=== PATIENT | female | born 1995 | race Caucasian/White ===

== ENCOUNTER 2016-06-16 08:25 | Emergency (ER) | payer BC ==
[2016-06-16 08:32] VITALS: O2SAT 98
--- NOTE | 2016-06-16 08:52 | CPEKG ---
Heart Rate: 64 RR Interval: 938 P-R Interval: 244 QRSD Interval: 82 QT Interval: 416 QTC Interval: 430 P Phoenix: 6 QRS Phoenix: 28 T Wave Phoenix: -15 EKG Severity - ABNORMAL ECG - EKG Impression: SINUS RHYTHM EKG Impression: FIRST DEGREE AV BLOCK EKG Impression: BORDERLINE T ABNORMALITIES, INFERIOR LEADS Electronically Signed By: Angelic Novak 16-Jun-2016 15:13:59
--- NOTE | 2016-06-16 08:54 | EDPHY ---
H & P Stated Complaint: this am had lower abd pain/causing her to faint Time Seen by Provider: 06/16/16 08:41 HPI/ROS: CHIEF COMPLAINT: Abdominal pain, Syncope HISTORY OF PRESENT ILLNESS: The patient is a 21 year old female presenting with syncope and lower abdominal pain. The patient woke up with lower abdominal cramping. She got up to use the bathroom, while trying to have a bowel movement she began to feel nauseous. She had a syncopal episode and came to on the floor. She has a small abrasion on her lip, but no other injuries. The patient is supposed to get her period soon. She feels moderate lower abdominal cramping and bloating. Her LMP was 05/19/16. She denies bloody stool or hematuria. No vomiting. No chest pain, palpitations, shortness of breath. Hx of syncope as a child; sounds like vasovagal. No alcohol use last night. Uses condoms for control. REVIEW OF SYSTEMS: Aside from elements discussed in the HPI, a comprehensive 10-point review of systems was reviewed and is negative. PAST MEDICAL HISTORY: Denies. SOCIAL HISTORY: [employer] student. VITAL SIGNS: Reviewed by me GENERAL: Well-developed, well-nourished, resting comfortably in no respiratory distress. HEENT: Atraumatic. Eyes: No icterus, no injection. Slight anisocoria. Mouth : moist mucous membranes. abrasion to the inner aspect to lower right lip. Neck: supple with no adenopathy. LUNGS: Clear to auscultation bilaterally, no wheezes, rhonchi or rales. CARDIAC: Regular rate and rhythm, no rubs, murmurs or gallops. ABDOMEN: Lower abdominal discomfort on palpation, very mild. No guarding, rebound, distention. BACK: No CVA tenderness. EXTREMITIES: No trauma. No edema. Range of motion is normal throughout. NEURO: Alert and oriented, grossly nonfocal. SKIN: Warm and dry, no rash. PSYCHIATRIC: Normal mentation, no agitation. Portions of this note were transcribed by a medical scientist. I personally performed a history, physical exam, medical decision making, and confirmed accuracy of information the transcribed note. - Personal History LMP (Females 10-55): 22-28 Days Ago Current Tetanus/Diphtheria Vaccine: Yes - Medical/Surgical History Hx Asthma: No Hx Chronic Respiratory Disease: No Hx Diabetes: No Hx Cardiac Disease: No Hx Renal Disease: No Hx Cirrhosis: No Hx Alcoholism: No Hx HIV/AIDS: No Hx Splenectomy or Spleen Trauma: No Other PMH: denies - Social History Smoking Status: Never smoked Constitutional: Initial Vital Signs Temperature (C) 36.9 C 06/16/16 08:29 Heart Rate 65 06/16/16 08:29 Respiratory Rate 16 06/16/16 08:29 Blood Pressure 110/74 06/16/16 08:29 O2 Sat (%) 98 06/16/16 08:29 O2 Delivery Mode Room Air Allergies/Adverse Reactions: No Known Allergies Allergy (Unverified 06/16/16 08:29) Home Medications: Medication Instructions Recorded Diflucan 06/16/16 Hydrocodone/APAP 5/325 [[place] 1 tab PO Q6H PRN #10 tab 06/16/16 5/325 (RX)] Medical Decision Making - Diagnostics EKG Interpretation: The 12 lead EKG was interpreted by myself. See hard copy and/or "tracemaster" electronic copy for interpretation: Sinus rhythm, first degree AV block, Borderline T abnormalities. Imaging: Pelvic ultrasound was obtained. Read by radiologist and discussed with myself. I viewed images on PACS system. Radiology report: Impression: 1. No acute findings. 2. 1.7 cm complex left ovarian cyst. Six-week follow up ultrasound is recommended to document resolution. Read by Dr Austin. Discussed with patient. ED Course/Re-evaluation: 21 year old with lower abdominal cramping pain, nausea, and syncope while on toilet (having bm). No blood in stools. Evaluation demonstrates an EKG without evidence of malignant arrhythmia, not , normal labs, normal UA, neg troponin, and largely unremarkable pelvic ultrasound, except for ovarian cyst. Discussed evaluation with patient. Feel safe for discharge. Suspect syncope was vasovagal in etiology; do not suspect cardiac syncope. Pain better with fluids and zofran and pain meds. Patient feels comfortable with plan to follow up for recheck of cyst. Differential Diagnosis: The differential diagnosis for the patient's abdominal pain was considered including but not limited to ovarian cyst, pelvic inflammatory disease, ovarian torsion, urinary tract infection, related complications, and appendicitis. - Data Points Laboratory Results: Laboratory Results 06/16/16 09:00 06/16/16 09:00 Medications Given: Discontinued Medications Sodium Chloride (Ns) 1,000 mls @ 0 mls/hr IV ONCE ONE PRN Reason: Wide Open Stop: 06/16/16 08:59 Last Admin: 06/16/16 09:47 Dose: 1,000 mls Departure - Departure Disposition: Home, Routine, Self-Care Clinical Impression: Lower abdominal pain Ovarian cyst Qualifiers: Qualifier Code: (N83.202) Unspecified ovarian cyst, left side Syncope Qualifiers: Qualifier Code: (R55) Syncope and collapse Condition: Good Instructions: Ovarian Cyst (ED), Syncope (ED) Additional Instructions: Drink plenty of fluids. Get plenty of rest. For your abdominal discomfort I recommend nonsteroidal antiinflammatories on a regular basis. I recommend Ibuprofen (Motrin, Advil) or Naproxen Sodium (Aleve) for pain and anti-inflammatory effects. You may take either one, but do not take both. Your dose is: Ibuprofen 600 mg every 6-8 hours with food. OR Naproxen Sodium (Aleve) 220 mg every 12 hours. Please follow up with her primary care physician if you're not improving as expected in the next 1-2 days. Be seen sooner if you are worse. Referrals: Andres Alexander DO [Doctor of Osteopathy] - As per Instructions Stand Alone Forms: School Excuse Prescriptions: Hydrocodone/APAP 5/325 [[place] 5/325 (RX)] 1 tab PO Q6H PRN #10 tab PRN Reason: Pain Report Scribed for: Angelic Novak Report Scribed by: Marylou Miranda Date of Report: 06/16/16 Time of Report: 08:54
[2016-06-16] MEDS ORDERED: NS 1,000 ML IV ONE (08:58)
[2016-06-16 09:17] LABS: % IMMATURE GRANULYOCYTES 0.2 % (0.0-1.1); ABSOLUTE IMMATURE GRANULOCYTES 0.02 10^3/uL (0.00-0.10); ADD DIFF? NO; ADD MORPH? NO; ADD SCAN? NO; ATYPICAL LYMPHOCYTE FLAG 0 (0-99); FRAGMENT RBC FLAG 0 (0-99); HEMATOCRIT 42.3 % (38.0-47.0); HEMOGLOBIN 14.7 g/dL (12.6-16.3); LEFT SHIFT FLG 0 (0-99); LIPEMIA HEMOLYSIS FLAG 90 (0-99); MEAN CELL HEMOGLOBIN 31.3 pg (27.9-34.1); MEAN CELL HEMOGLOBIN CONCENTR. 34.8 g/dL (32.4-36.7); MEAN CELL VOLUME 90.2 fL (81.5-99.8); MEAN PLATELET VOLUME 9.4 fL (8.7-11.7); PLATELET CLUMPS FLAG 0 (0-99); PLATELET COUNT 232 10^3/uL (150-400); RED BLOOD CELL COUNT 4.69 10^6/uL (4.18-5.33); RED CELL DISTRIBUTION WIDTH 11.9 % (11.5-15.2)
[2016-06-16 09:27] LABS: ANION GAP 12 mEq/L (8-16); CALCIUM 9.3 mg/dL (8.5-10.4); CARBON DIOXIDE 24 mEq/l (22-31); CHLORIDE 106 mEq/L (97-110); CREATININE 0.8 mg/dL (0.6-1.0); GLOMERULAR FILTRATION RATE > 60; GLUCOSE 92 mg/dL (70-100); POTASSIUM 4.1 mEq/L (3.5-5.2); SODIUM 142 mEq/L (134-144)
[2016-06-16 09:50] LABS: COLOR YELLOW; LEUKOCYTE ESTERASE,URINE TRACE (NEGATIVE); NITRITE,URINE NEGATIVE (NEGATIVE)
[2016-06-16 09:56] LABS: BACTERIA 1+ /hpf (NONE SEEN); MUCUS TRACE /lpf (NONE-1+)
[2016-06-16 10:33] VITALS: BP 112/66; PULSE 60; RESP 18; TEMP 98.1
--- NOTE | 2016-06-16 10:39 | US ---
Transabdominal and Transvaginal Pelvic Ultrasound History: 21-year-old with lower abdominal pain, LMP May 19, 2016. Comparison: None available. Findings: Transabdominal: The uterus measures 6.8 x 5.3 x 3.8 cm. The bladder is normal. Transvaginal: No fibroids are present. Scattered tiny simple endometrial cysts are present. Endometri um is otherwise homogeneous and measures 10 mm. The left ovary measures 1.7 x 2.5 x 2.6 cm. The right ovary measures 2.0 x 2.3 x 2.3 cm. A simple 1.4 x 1.1 x 1.4 cm right paraovarian cyst is present. Th ere is a complex 1.7 x 1.4 x 1.4 cm left ovarian cyst that could represent a hemorrhagic corpus luteu m. Normal arterial blood flow is documented to both ovaries by Doppler ultrasound. There is a small a mount of free fluid. Impression: 1. No acute findings. 2. 1.7 cm complex left ovarian cyst. Six-week follow up ultrasound is recommended to document resolut ion. Findings discussed with Angelic Novak today at 958 hours.
== END 2016-06-16 10:38 | disposition home or self-care (01) ==
DX: R55 Syncope and collapse (principal); N83.202 Unspecified ovarian cyst, left side